=== PATIENT | male | born 1990 | race African-American/Black ===

== ENCOUNTER 2019-10-08 18:21 | Emergency (ER) | payer SELFPAY ==
[~2019-10-08] VITALS: Ht 175.3 cm; Wt 79.4 kg
--- NOTE | 2019-10-08 18:30 | NUR ---
ED Nurse Note: Patient walked into ED from home c/o shortness of breath since 1000, patient reports history of asthma. patient placed on a patient monitor, offered patient a hospital gown, but patient declioned. patient reports wheezing. patient reports the prescribed inhalers that he use was not effective 4 hours ago.
--- NOTE | 2019-10-08 18:38 | Emergency Room Report ---
History of Present Illness General Chief Complaint: Dyspnea/Respdistress Source: Patient Present Illness HPI Patient presents with complaints of asthma exacerbation Reports that he intermittently gets flareups he does not have a primary physician has not been able to get steroids or his inhalers refilled Denies any fevers or chills denies any chest pain he has a mild cough which he says is usual with his asthma flareup Denies any vomiting or diarrhea denies any neck pain denies any recent travel Allergies: Uncoded Allergies: SEASONAL (Allergy, Unknown, 10/08/19) Patient History Past Medical History: see triage record Reviewed Nursing Documentation: PMH: Agreed; PSxH: Agreed Nursing Documentation-PMH Hx Asthma: Yes Review of Systems All Other Systems: negative except mentioned in HPI Physical Exam Vital Signs Date Time Temp Pulse Resp B/P (MAP) Pulse Ox O2 Delivery O2 Flow Rate FiO2 10/08/19 18:23 98.2 83 18 118/67 (84) 92 Room Air Sp02 EP Interpretation: reviewed, normal General Appearance: mild distress - Appears mildly short of breath Head: normocephalic, atraumatic Eyes: bilateral eye PERRL, bilateral eye EOMI ENT: hearing grossly normal, normal pharynx, TMs + canals normal, uvula midline Neck: full range of motion, supple, no meningismus, no bony tend Respiratory: no respiratory distress, no retraction, no accessory muscle use, wheezing - bilaterally Cardiovascular #1: normal peripheral pulses, regular rate, rhythm, no edema, no gallop, no JVD, no murmur Gastrointestinal: normal bowel sounds, non tender, soft, no mass, no organomegaly, non-distended, no guarding, no hernia, no pulsatile mass, no rebound Genitourinary: no CVA tenderness Musculoskeletal: normal inspection Neurologic: oriented x3, responsive, insurance biller III-XII nml as tested, motor strength/ tone normal, sensory intact Psychiatric: mood/affect normal Skin: no rash Lymphatic: normal inspection, no adenopathy Medical Decision Making Diagnostic Impression: Primary Impression: Asthma attack ER Course Multiple differentials including but not limited to asthma exacerbation, URI, pneumonia entertained Patient reports that he has had several flareups in the past and this is identical to those patient also reports that he has to go to work and was requesting to be dispositioned More quickly With the findings breathing treatment was initiated along with oral steroids I do feel that further observation would be appropriate given his initial presentation however patient requesting to be let go and will follow closely With primary physician Last Vital Signs Date Time Temp Pulse Resp B/P (MAP) Pulse Ox O2 Delivery O2 Flow Rate FiO2 10/08/19 18:23 98.2 83 18 118/67 (84) 92 Room Air Status: improved Disposition: HOME, SELF-CARE Condition: Improved Scripts Albuterol Sulfate* (ALBUTEROL SULFATE MDI*) 8.5 Gm Hfa.aer.ad 2 PUFF INH Q6H, #1 EA 0 Refills Prov: Jennifer Abraham DO 10/08/19 Methylprednisolone (Methylprednisolone*) 4MG Dspk 4 MG ORAL DIRECTED for 6 Days, #21 EA 0 Refills Day 1: Two tablets before breakfast, one after lunch, one after dinner, and two at bedtime. If started late in the day, take all six tablets at once or divide into two or three doses, unless otherwise directed by prescriber. Day 2: One tablet before breakfast, one after lunch, one after dinner, and two at bedtime Day 3: One tablet before breakfast, one after lunch, one after dinner, and one at bedtime Day 4: One tablet before breakfast, one after lunch, and one at bedtime Day 5: One tablet before breakfast and one at bedtime Day 6: One tablet before breakfast Prov: Jennifer Abraham DO 10/08/19 Additional Instructions: Patient is provided with the discharge instructions notified to follow up with primary doctor in the next 2-3 days otherwise return to the er with any worsening symptoms. Please note that this report is being documented using [employer] technology. This can lead to erroneous entry secondary to incorrect interpretation by the dictating instrument. Jennifer Abraham DO Oct 08, 2019 18:38
[2019-10-08 18:39] VITALS: BP 118/67
[2019-10-08] MEDS ORDERED: Ipratropium 0.02% Inh Soln 2.5ml UD HHN ONE (18:45)
[2019-10-08] MEDS ORDERED: Albuterol ud Inhalation HHN ONE (18:45)
[2019-10-08] MEDS ORDERED: MEDROL DOSEPAK4 MG ORAL (19:02)
[2019-10-08] MEDS ORDERED: ALBUTEROL SULF8.5 GM INH (19:02)
--- NOTE | 2019-10-08 19:09 | NUR ---
HAND-OFF: Report given to Annetta HEMPHILL.
--- NOTE | 2019-10-08 19:10 | NUR ---
ED Nurse Note: Received report from Geovanna HEMPHILL.
[2019-10-08 19:15] VITALS: BP 120/77
--- NOTE | 2019-10-08 19:15 | NUR ---
ED Nurse Note: Pt cleared by ERMD for discharge. DC instructions/prescription was given and explained to pt and verbalized understanding of teachings. All medical deviecs such as ID band removed. Pt is AAO x4, ambulatory and left with all personal belongings.
== END 2019-10-08 19:15 | disposition home or self-care (01) ==
LOC: EMR 18:50
DX: J45.901 Unspecified asthma with (acute) exacerbation (principal)
CPT/HCPCS: 94640; 94664; 99284; J7512